=== PATIENT | female | born 1945 | race Caucasian/White ===

== ENCOUNTER 2024-05-25 22:19 | Emergency (ER) | payer MEDICARE, OTHER ==
[2024-05-25 22:32] VITALS: BP 121/80; O2SAT 99
--- NOTE | 2024-05-25 23:06 | ED Physician Documentation ---
PD HPI UPPER EXT INJURY - Stated complaint Stated Complaint: L WRIST INJ - Chief complaint Chief Complaint: Ext Problem - History obtained from History obtained from: Patient - Additonal information Additional information: HPI from patient. Patient c/o sudden onset left wrist pain at approximately 8 PM tonight while walking in a parking lot, tripped and FOOSH. Patient is right hand dominant. Pain is worse with movement, palpation. Denies numbness, weakness. Denies other injury. Review of Systems Musculoskeletal: reports: Joint pain, Joint swelling. denies: Neck pain, Back pain Neurologic: denies: Focal weakness, Numbness PD PAST MEDICAL HISTORY - Past Medical History Past Medical History: Yes Cardiovascular: Hypertension - Past Surgical History Past Surgical History: No - Present Medications Home Medications: Ambulatory Orders Medication Instructions Recorded Confirmed amLODIPine [Norvasc] 5 mg PO ONCE 05/25/24 05/25/24 HYDROcod/ACETAM 5/325 [[place] 5/325] 1 - 2 tablet PO Q6H PRN #14 tablet 05/26/24 - Allergies Allergies/Adverse Reactions: Allergies Allergy/AdvReac Type Severity Reaction Status Date / Time No Known Drug Allergies Allergy Verified 05/25/24 22:36 - Social History Does the pt smoke?: No Smoking Status: Never smoker ETOH Use: Wine Does the pt have substance abuse?: No - Immunizations Immunizations are current?: Yes - POLST Patient has POLST: No PD ED PE NORMAL - Vitals Vital signs reviewed: Yes - General General: Alert and oriented X 3, No acute distress, Well developed/nourished - Neuro Neuro: Alert and oriented X 3, No sensory deficit (LTS intact fingertips of left hand) PD ED PE EXPANDED - Extremities Extremities: Other (left wrist swelling without gross deformity. Significantly limited ROM (both ulnar and raidal deviation) due to pain. TTP both lateral and medial aspects left wrist with distinct "snuff box" tenderness) Results - Vitals Vitals: Oxygen O2 Source Room air - Rads (name of study) left wrist xrays Relevant Findings:: Prelim report reviewed, See rad report PD Medical Decision Making - ED course Complexity details: reviewed results, re-evaluated patient, considered differential, d/w patient ED course: Wrist xrays s/o scaphoid waist fracture. Additional findings on these films s/o avulsion fracture from hamate. Thumb spica splint applied. Results reviewed with patient, return precautions discussed. I advised patient that she will need follow up with orthopedic surgeon, ideally within the following week. Patient given 1 tab vicodin in ED and e-prescribed same. Departure - Departure Disposition: 01 Home, Self Care Clinical Impression: Scaphoid fracture of wrist Qualifiers: Encounter type: initial encounter Scaphoid bone location: middle third Fracture type: closed Fracture alignment: nondisplaced Laterality: left Qualified Code(s): S62.025A - Nondisplaced fracture of middle third of navicular [scaphoid] bone of left wrist, initial encounter for closed fracture Condition: Good Instructions: ED Fx Wrist Navicular Conf, ED Sling, ED Splint Care Fiberglass, ED Fx Wrist General Follow-Up: ANGELA RAY MD [Primary Care Provider] - Prescriptions: HYDROcod/ACETAM 5/325 [[place] 5/325] 1 - 2 tablet PO Q6H PRN #14 tablet PRN Reason: Pain Comments: The findings on the x-rays are suggestive of a fracture of the scaphoid bone of the wrist (sometimes referred to as the navicular bone). There is also a possible chip fracture of another wrist bone (hamate) on the other side of the wrist. The treatment for now is splint/sling, but you need to follow up with an orthopedic surgeon as soon as can be arranged. Contact your primary care provider's office in the morning on Monday to inquire about the referral process. You can also contact your insurance provider regarding obtaining referral to an orthopedic surgeon. I have electronically submitted a prescription for Vicodin (hydrocodone with acetaminophen) [facility] [place]. I am prescribing a short course of narcotic pain medication for you. These are potentially dangerous and addictive medications that should be used carefully. These medications may constipate you. Take an nbsd-vnr-torlsqe stool softener (docusate) twice daily with plenty of water while taking these medications. If you go 24 hours without a bowel movement, take [id number] miralax, per package instructions. Do not drink or drive while taking these medications. If you received narcotic or sedating medications while in the emergency department, do not drive for 24 hours. Store this medication in a safe, secure place and out of reach of children. It is a violation of federal law to give or sell this medication to another person or to use in a manner other than prescribed. The ED will not refill narcotic prescriptions, including prescriptions lost or stolen. To dispose of unwanted medications: 1. [facility] [address] in [place] has a medication drop box. They accept prescription medications (in pill form) Monday through Monday 9:00 a.m. to 5:00 p.m. 2. [facility] [employer] [facility] accepts prescription medications (in pill form only) for disposal year round. Call for more information. 3. Contact the [facility] for the next [facility] sponsored prescription drug collection event. , [phone], or [phone]; Discharge Date/Time: 05/26/24 00:37
--- NOTE | 2024-05-25 23:31 | XRAY Report ---
PROCEDURE: Wrist 3+V LT INDICATIONS: fall TECHNIQUE: 3 views of the wrist were acquired. COMPARISON: None. FINDINGS: Bones: Background degenerative changes of the left wrist. Osseous lucencies noted over the distal po le of the scaphoid and capitate. Cortical regularity and lucency at the scaphoid waist suspected to r epresent a fracture given history of trauma and overlying soft tissue swelling. Soft tissues: No suspicious soft tissue calcifications or masses. IMPRESSION: Suspected scaphoid waist fracture with overlying soft tissue edema. Background degenerative changes a nd osseous lucencies of the scaphoid and capitate which may represent erosion. Curvilinear density adjacent to the ulnar side of the hamate may represent artifact from positioning versus possible avulsion fracture fragment. Reviewed by: Lucio Moreira MD on 05/25/2024 11:30 PM PDT Approved by: Lucio Moreira MD on 05/25/2024 11:30 PM PDT Station ID: [id number]
[2024-05-25] MEDS: HYDROcod/ACETAM 5/325 MG TABLET PO STA (23:47)
== END 2024-05-26 00:37 | disposition home or self-care (01) ==
LOC: ED 22:19
DX: S62.025A Nondisplaced fracture of middle third of navicular [scaphoid] bone of left wrist, initial encounter for closed fracture (principal); W01.0XXA Fall on same level from slipping, tripping and stumbling without subsequent striking against object, initial encounter; Y93.01 Activity, walking, marching and hiking; Y92.481 Parking lot as the place of occurrence of the external cause
CPT/HCPCS: 73110; 99283; A9270